=== PATIENT | female | born 1960 | race American Indian/Alaskan Native ===

== ENCOUNTER 2016-04-20 08:54 | Emergency (ER) | payer MEDICAID ==
[2016-04-20 09:12] VITALS: BP 125/71
[2016-04-20] MEDS ORDERED: NACL 0.9% 1000 ML 1,000 ML IV ONE (11:52)
[2016-04-20] MEDS ORDERED: TORADOL IV ONE (11:52)
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
[2016-04-20] MEDS ORDERED: TORADOL IM ONE (12:00)
[2016-04-20 12:29] LABS: Basophils % (Auto) 0.7 % (0.0-1.8); Eosinophils % (Auto) 1.4 % (0.0-4.3); Hematocrit 37.4 % (30.3-42.9); Hemoglobin 12.4 gm/dl (10.1-14.3); Mean Corpuscular HGB Conc 33 % (30-34); Mean Corpuscular Hemoglobin 29 pg (28-32); Mean Corpuscular Volume 87 fl (79-97); Platelet Count 173 K/mm3 (140-440); Red Blood Count 4.31 M/mm3 (3.65-5.03); Red Cell Distribution Width 15.3 % (13.2-15.2); White Blood Count 11.2 K/mm3 (4.5-11.0)
[2016-04-20 12:33] LABS: Albumin 3.5 g/dL (3.9-5); BUN/Creatinine Ratio 10.95; Bilirubin,Total 0.2 mg/dL (0.1-1.2); Calcium 9.7 mg/dL (8.4-10.2); Chloride 97.4 mmol/L (98-107); Potassium 3.4 mmol/L (3.6-5.0); Total Protein 6.9 g/dL (6.3-8.2)
[2016-04-20 12:39] LABS: INR 0.98 (0.87-1.13)
[2016-04-20 12:40] LABS: Partial Thromboplastin Time 33.6 Sec. (24.2-36.6)
[2016-04-20 13:26] LABS: Bacteria,Urine 1+ /HPF (Negative); Bilirubin,Urine NEG (Negative); Blood,Urine NEG (Negative); Ketones,Urine NEG (Negative); Leukocyte Esterase,Urine NEG (Negative); Nitrite,Urine NEG (Negative); Protein,Urine <15 mg/dL mg/dL (Negative); Urobilinogen,Urine < 2.0 mg/dL (<2.0)
--- NOTE | 2016-04-21 08:38 | XRay Report ---
LEFT KNEE 3 VIEWS: FINDINGS: There is [id number] narrowing of the knee joint space with secondary hypertrophic changes at the articular margins. There are no erosive changes. There is narrowing of the patellofemoral joint. There is mild osteopenia but no periarticular distribution. IMPRESSION: Tricompartmental osteoarthritis.
--- NOTE | 2016-04-22 07:58 | Vascular Lab Report ---
Left Lower Extremity Venous Duplex Study: Reason for Exam: Left leg pain. Comments on the Right: A limited duplex study was done of the proximal veins of the right lower extremity. All veins visualized are freely compressible without evidence of internal echogenicity. Flow is spontaneous and phasic throughout. No evidence of acute or chronic thrombus is seen in any of the vessels visualized. Comments on the Left: All veins visualized are freely compressible without evidence of internal echogenicity. Flow is spontaneous and phasic throughout. No evidence of acute or chronic thrombus is seen in any of the vessels visualized. Impression: No evidence of acute or chronic deep venous thrombosis in the left lower extremity.
== END 2016-04-20 16:08 | disposition left against medical advice (07) ==
LOC: ED 08:54
DX: M79.662 Pain in left lower leg (principal); E11.22 Type 2 diabetes mellitus with diabetic chronic kidney disease; I12.9 Hypertensive chronic kidney disease with stage 1 through stage 4 chronic kidney disease, or unspecified chronic kidney disease; N18.9 Chronic kidney disease, unspecified; F17.200 Nicotine dependence, unspecified, uncomplicated; F20.0 Paranoid schizophrenia; Z79.899 Other long term (current) drug therapy; Z88.8 Allergy status to other drugs, medicaments and biological substances; W19.XXXA Unspecified fall, initial encounter; Y93.89 Activity, other specified; Y99.8 Other external cause status; Y92.89 Other specified places as the place of occurrence of the external cause
CPT/HCPCS: 36415; 73562; 80053; 81001; 83690; 85025; 85610; 85730; 93971; 96372; 99284; J1885

== ENCOUNTER 2016-08-02 08:38 | Emergency (ER) | payer MEDICAID ==
[2016-08-02 09:04] LABS: Basophils % (Auto) 0.3 % (0.0-1.8); Hematocrit 41.1 % (30.3-42.9); Hemoglobin 13.3 gm/dl (10.1-14.3); Mean Corpuscular HGB Conc 32 % (30-34); Mean Corpuscular Hemoglobin 29 pg (28-32); Mean Corpuscular Volume 90 fl (79-97); Platelet Count 183 K/mm3 (140-440); Red Blood Count 4.59 M/mm3 (3.65-5.03); Red Cell Distribution Width 16.4 % (13.2-15.2); White Blood Count 11.6 K/mm3 (4.5-11.0)
[2016-08-02 09:20] LABS: Albumin 3.7 g/dL (3.9-5); Bilirubin,Total 0.2 mg/dL (0.1-1.2); Calcium 9.5 mg/dL (8.4-10.2); Potassium 3.6 mmol/L (3.6-5.0); Total Protein 7.3 g/dL (6.3-8.2)
[2016-08-02] MEDS ORDERED: DECADRON IV ONE (09:44)
[2016-08-02] MEDS ORDERED: BENADRYL IV ONE (09:44)
[2016-08-02] MEDS ORDERED: PEPCID IV ONE (09:44)
[2016-08-02 10:35] LABS: Bacteria,Urine 4+ /HPF (Negative); Bilirubin,Urine NEG (Negative); Blood,Urine NEG (Negative); Ketones,Urine NEG (Negative); Leukocyte Esterase,Urine NEG (Negative); Nitrite,Urine NEG (Negative); Urobilinogen,Urine < 2.0 mg/dL (<2.0)
--- NOTE | 2016-08-02 11:51 | XRay Report ---
AP CHEST: HISTORY: Tachycardia AP view of the chest demonstrates a normal mediastinal and cardiac contour with clear lungs and normal bony and soft tissue structures. IMPRESSION: Unremarkable AP chest. No significant change since 09/11/14.
--- NOTE | 2016-08-02 15:00 | Emergency Department Report ---
ED General Adult HPI - General Chief complaint: Allergic Reaction Stated complaint: SWOLLEN LIP/HIVES/CONSTIPATION/WEEKNESS Time Seen by Provider: 08/02/16 09:43 Source: patient Mode of arrival: Ambulatory Limitations: No Limitations - History of Present Illness Initial comments: Patient reports that she awoke with swollen lips and hives on her skin. Unknown allergen history per patient. Not on lisinopril for HTN -: Gradual, hour(s) Radiation: non-radiation Severity scale (0 -10): 0 Consistency: other (improving) Improves with: none Worsens with: medication (2) Associated Symptoms: chest pain (reports chest pain on Monday last seconds. Denies any subsequent chest pain.). denies: confusion, cough, diaphoresis, fever/chills, headaches, loss of appetite, malaise, nausea/vomiting, rash, seizure, shortness of breath, syncope, weakness - Related Data Home Medications Medication Instructions Recorded Confirmed Last Taken Sertraline [Zoloft] 50 mg PO QDAY 09/11/14 08/21/15 06/05/15 08:00 hydrALAZINE [Apresoline TAB] 50 mg PO BID 09/11/14 08/21/15 06/04/15 20:00 risperiDONE [RisperDAL] 2 mg PO QHS 09/11/14 08/21/15 06/04/15 20:00 Previous Rx's Medication Instructions Recorded Last Taken Type EPINEPHrine [Epipen 2-Irvin] 0.3 mg IM ONCE #1 pack 08/02/16 Unknown Rx Famotidine [Pepcid] 20 mg PO BID #10 tablet 08/02/16 Unknown Rx diphenhydrAMINE [Benadryl CAP] 50 mg PO QHS #5 capsule 08/02/16 Unknown Rx predniSONE [Deltasone] 50 mg PO QDAY #5 tab 08/02/16 Unknown Rx Allergies Allergy/AdvReac Type Severity Reaction Status Date / Time lisinopril Allergy Swelling Verified 06/05/15 12:42 ED Review of Systems ROS: Stated complaint: SWOLLEN LIP/HIVES/CONSTIPATION/WEEKNESS Other details as noted in HPI Other: GENERAL: No weight change, fatigue, weakness, fever, chills, or night sweats SKIN: hives itching, lower left lip swelling HEAD: No trauma, headache, or visual changes EYES: No blurriness, tearing, itching, acute visual loss, conjunctival discoloration, or scleral icterus EARS: No hearing loss, tinnitus, vertigo, or earache NOSE: No rhinorrhea, stuffiness, sneezing, itching, or epistaxis MOUTH: No bleeding gums, hoarseness, sore throat, or swelling CARDIAC: chest pain days ago RESPIRATORY: No shortness of breath, wheeze, cough, sputum production, hemoptysis, pneumonia, asthma, bronchitis, or emphysema GI: denies abd pain, n/v/d URINARY: No frequency, urgency, polyuria, dysuria, hematuria, or incontinence MUSCULOSKELETAL: No muscle weakness, joint stiffness, decrease in range of motion, redness, swelling, tenderness NEUROLOGIC: No loss of sensation, numbness, tingling, tremors, weakness, paralysis, seizures HEMATOLOGIC: No anemia, easy bruising, bleeding, petechiae, or purpura ENDOCRINE: No hot or cold intolerance, sweating, polyuria, polydipsia or, polyphagia no thyroid problems PSYCHIATRIC: No change in mood, no anxiety, no depression ED Past Medical Hx - Past Medical History Previous Medical History?: Yes Hx Hypertension: Yes Hx Diabetes: Yes Hx Renal Disease: Yes Hx Psychiatric Treatment: Yes (paranoid schizophrenia) Additional medical history: "kidney problems", Left leg pain - Surgical History Past Surgical History?: Yes Additional Surgical History: FEET SURGERY. - Social History Smoking Status: Current Every Day Smoker Substance Use Type: Prescribed - Medications Home Medications: Home Medications Medication Instructions Recorded Confirmed Last Taken Type Sertraline [Zoloft] 50 mg PO QDAY 09/11/14 08/21/15 06/05/15 08:00 History hydrALAZINE [Apresoline TAB] 50 mg PO BID 09/11/14 08/21/15 06/04/15 20:00 History risperiDONE [RisperDAL] 2 mg PO QHS 09/11/14 08/21/15 06/04/15 20:00 History EPINEPHrine [Epipen 2-Irvin] 0.3 mg IM ONCE #1 pack 08/02/16 Unknown Rx Famotidine [Pepcid] 20 mg PO BID #10 tablet 08/02/16 Unknown Rx diphenhydrAMINE [Benadryl CAP] 50 mg PO QHS #5 capsule 08/02/16 Unknown Rx predniSONE [Deltasone] 50 mg PO QDAY #5 tab 08/02/16 Unknown Rx ED Physical Exam - General Limitations: No Limitations - Other Other exam information: GENERAL: Patient in no acute distress HEAD: Normocephalic, atraumatic EYES: PERRLA, EOM intact, no scleral icterus, no conjunctival hemorrhage, visual mitchell and acuity wnl, NOSE: No tenderness, discharge, sinus tenderness MOUTH: No erythema, bleeding, exudate HEART: Regular rate and rhythm, no murmur, S1-S2 are auscultated, pulses are symmetric LUNGS: No wheezing, rales, rhonchi, bilateral breath sounds ABDOMEN: Normal bowel sounds, no tenderness, no rebound, no guarding, no masses , no CVA tenderness MUSCULOSKELETAL: Normal joint range of motion, no redness, no swelling, no tenderness NEUROLOGIC: GCS 15, Alert and Oriented x3, Cranial nerves intact, normal sensation, normal strength, no cerebellar deficit PSYCHIATRIC: No homicidal or suicidal ideation, no anxiety, no depression, no hallucinations SKIN: Skin is warm and dry, no wounds, no rashes ED Course Vital Signs 08/02/16 08/02/16 08/02/16 08:44 10:00 10:57 Temperature 97.8 F 98.1 F Pulse Rate 104 H 82 60 Respiratory 22 18 16 Rate Blood Pressure 152/56 Blood Pressure 127/61 112/57 [Left] O2 Sat by Pulse 100 99 97 Oximetry 08/02/16 08/02/16 08/02/16 11:48 11:50 12:00 Temperature Pulse Rate 61 59 L Respiratory 23 20 27 H Rate Blood Pressure 118/47 Blood Pressure [Left] O2 Sat by Pulse 97 97 98 Oximetry 08/02/16 08/02/16 08/02/16 12:10 12:20 12:30 Temperature Pulse Rate 60 54 L 61 Respiratory 20 21 25 H Rate Blood Pressure 118/47 107/63 115/59 Blood Pressure [Left] O2 Sat by Pulse 98 97 97 Oximetry 08/02/16 08/02/16 08/02/16 12:40 12:50 13:00 Temperature Pulse Rate 63 69 70 Respiratory 25 H 26 H 29 H Rate Blood Pressure 115/59 123/65 123/65 Blood Pressure [Left] O2 Sat by Pulse 98 97 97 Oximetry 08/02/16 08/02/16 08/02/16 13:10 13:20 13:30 Temperature Pulse Rate 67 83 87 Respiratory 26 H 18 9 L Rate Blood Pressure 118/80 118/80 118/80 Blood Pressure [Left] O2 Sat by Pulse 98 96 97 Oximetry 08/02/16 08/02/16 08/02/16 13:40 13:50 14:00 Temperature Pulse Rate 75 61 58 L Respiratory 14 11 L 31 H Rate Blood Pressure 118/80 139/85 139/85 Blood Pressure [Left] O2 Sat by Pulse 98 96 99 Oximetry 08/02/16 08/02/16 08/02/16 14:10 14:20 14:30 Temperature Pulse Rate 62 59 L 57 L Respiratory 30 H 30 H 19 Rate Blood Pressure 122/60 125/63 133/57 Blood Pressure [Left] O2 Sat by Pulse 97 98 96 Oximetry 08/02/16 08/02/16 08/02/16 14:40 14:50 15:00 Temperature Pulse Rate 63 63 62 Respiratory 25 H 25 H 27 H Rate Blood Pressure 133/57 136/72 129/77 Blood Pressure [Left] O2 Sat by Pulse 100 98 97 Oximetry 08/02/16 08/02/16 15:10 15:20 Temperature Pulse Rate 58 L 54 L Respiratory 26 H 28 H Rate Blood Pressure 129/77 132/72 Blood Pressure [Left] O2 Sat by Pulse 97 97 Oximetry ED Medical Decision Making - Lab Data Result diagrams: 08/02/16 08:53 08/02/16 08:53 - EKG Data Interpretation: no acute changes - Radiology Data Radiology results: report reviewed - Medical Decision Making Patient comfortable. Updated with results. Plan discharge with outpatient follow-up. Patient agrees with plan and will return if symptoms worsen. Critical care attestation.: If time is entered above; I have spent that time in minutes in the direct care of this critically ill patient, excluding procedure time. ED Disposition Clinical Impression: Allergic reaction Qualifiers: Encounter type: initial encounter Qualified Code(s): T78.40XA - Allergy, unspecified, initial encounter Disposition: TO HOME OR SELFCARE Is pt being admited?: No Condition: Stable Instructions: Chest Pain (ED), Allergies (ED) Prescriptions: diphenhydrAMINE [Benadryl CAP] 50 mg PO QHS #5 capsule EPINEPHrine [Epipen 2-Irvin] 0.3 mg IM ONCE #1 pack Famotidine [Pepcid] 20 mg PO BID #10 tablet predniSONE [Deltasone] 50 mg PO QDAY #5 tab Referrals: PRIMARY CARE, [Primary Care Provider] - 3-5 Days Time of Disposition: 15:52
[2016-08-02 15:30] VITALS: BP 132/72
== END 2016-08-02 15:58 | disposition home or self-care (01) ==
LOC: ED 08:38
DX: T78.40XA Allergy, unspecified, initial encounter (principal); I10 Essential (primary) hypertension; E11.9 Type 2 diabetes mellitus without complications; F20.0 Paranoid schizophrenia; F17.200 Nicotine dependence, unspecified, uncomplicated; Z88.6 Allergy status to analgesic agent
CPT/HCPCS: 36415; 71010; 80053; 81001; 83690; 84484; 85025; 93005; 93010; 96374; 96375; 99284; J1100; J1200

== ENCOUNTER 2016-08-11 08:42 | Emergency (ER) | payer MEDICAID ==
[2016-08-11] MEDS ORDERED: ULTRAM PO ONE (11:46)
--- NOTE | 2016-08-11 12:09 | Emergency Department Report ---
ED Extremity Problem HPI - General Chief complaint: Extremity Problem,Nontraumatic Stated complaint: R/L LEG PAIN Time Seen by Provider: 08/11/16 11:09 Source: patient Mode of arrival: Ambulatory Limitations: No Limitations - History of Present Illness Initial comments: "my legs have been hurting for some years, aching more latley for past month" pt denies fall injury or trauma MD Complaint: extremity pain Onset/Timin -: Sudden, year(s) Location: bilateral lower extremity History of Same: Yes -: Yes myalgia, Yes arthralgia Radiation: none Severity scale (0 -10): 8 Quality: aching Consistency: intermittent Improves with: rest Worsens with: weight bearing, walking Associated Symptoms: denies other symptoms - Related Data Home Medications Medication Instructions Recorded Confirmed Last Taken Sertraline [Zoloft] 50 mg PO QDAY 09/11/14 08/21/15 06/05/15 08:00 hydrALAZINE [Apresoline TAB] 50 mg PO BID 09/11/14 08/21/15 06/04/15 20:00 risperiDONE [RisperDAL] 2 mg PO QHS 09/11/14 08/21/15 06/04/15 20:00 Previous Rx's Medication Instructions Recorded Last Taken Type EPINEPHrine [Epipen 2-Irvin] 0.3 mg IM ONCE #1 pack 08/02/16 Unknown Rx Famotidine [Pepcid] 20 mg PO BID #10 tablet 08/02/16 Unknown Rx diphenhydrAMINE [Benadryl CAP] 50 mg PO QHS #5 capsule 08/02/16 Unknown Rx predniSONE [Deltasone] 50 mg PO QDAY #5 tab 08/02/16 Unknown Rx Capsaicin [Capzasin-Hp] 1 applicatio TP TID PRN #1 tube 08/11/16 Unknown Rx Naproxen [Naprosyn TAB] 500 mg PO BID PRN #60 tablet 08/11/16 Unknown Rx Allergies Allergy/AdvReac Type Severity Reaction Status Date / Time lisinopril Allergy Swelling Verified 06/05/15 12:42 ED Review of Systems ROS: Stated complaint: R/L LEG PAIN Other details as noted in HPI Constitutional: denies: chills, fever Eyes: denies: eye pain, eye discharge, vision change ENT: denies: ear pain, throat pain Respiratory: denies: cough, shortness of breath, wheezing Cardiovascular: denies: chest pain, palpitations Endocrine: no symptoms reported Gastrointestinal: denies: abdominal pain, nausea, diarrhea Genitourinary: denies: urgency, dysuria, discharge Musculoskeletal: arthralgia, myalgia Skin: denies: rash, lesions Neurological: denies: headache, weakness, paresthesias Psychiatric: denies: anxiety, depression Hematological/Lymphatic: denies: easy bleeding, easy bruising ED Past Medical Hx - Past Medical History Previous Medical History?: Yes Hx Hypertension: Yes Hx Diabetes: Yes Hx Renal Disease: Yes Hx Psychiatric Treatment: Yes (paranoid schizophrenia) Additional medical history: "kidney problems", Left leg pain - Surgical History Past Surgical History?: Yes Additional Surgical History: FEET SURGERY. - Social History Smoking Status: Current Every Day Smoker Substance Use Type: None - Medications Home Medications: Home Medications Medication Instructions Recorded Confirmed Last Taken Type Sertraline [Zoloft] 50 mg PO QDAY 09/11/14 08/21/15 06/05/15 08:00 History hydrALAZINE [Apresoline TAB] 50 mg PO BID 09/11/14 08/21/15 06/04/15 20:00 History risperiDONE [RisperDAL] 2 mg PO QHS 09/11/14 08/21/15 06/04/15 20:00 History EPINEPHrine [Epipen 2-Irvin] 0.3 mg IM ONCE #1 pack 08/02/16 Unknown Rx Famotidine [Pepcid] 20 mg PO BID #10 tablet 08/02/16 Unknown Rx diphenhydrAMINE [Benadryl CAP] 50 mg PO QHS #5 capsule 08/02/16 Unknown Rx predniSONE [Deltasone] 50 mg PO QDAY #5 tab 08/02/16 Unknown Rx Capsaicin [Capzasin-Hp] 1 applicatio TP TID PRN #1 tube 08/11/16 Unknown Rx Naproxen [Naprosyn TAB] 500 mg PO BID PRN #60 tablet 08/11/16 Unknown Rx ED Physical Exam - General Limitations: No Limitations General appearance: alert, in no apparent distress - Head Head exam: Present: atraumatic, normocephalic - Eye Eye exam: Present: normal appearance - ENT ENT exam: Present: mucous membranes moist - Neck Neck exam: Present: normal inspection - Respiratory Respiratory exam: Present: normal lung sounds bilaterally. Absent: respiratory distress - Cardiovascular Cardiovascular Exam: Present: regular rate, normal rhythm. Absent: systolic murmur, diastolic murmur, rubs, gallop - Rectal Rectal exam: Present: deferred - Extremities Exam Extremities exam: Present: normal inspection, full ROM, normal capillary refill. Absent: tenderness, pedal edema, joint swelling, calf tenderness - Expanded Lower Extremity Exam Right Hip exam: Present: full ROM, external rotation, internal rotation, pelvic stability. Absent: tenderness, swelling, abrasion, laceration, ecchymosis, deformity, crepidus, dislocation, erythema, shortening Upper Leg exam: Present: normal inspection, full ROM. Absent: tenderness, swelling, abrasion, laceration, ecchymosis, deformity, crepidus, dislocation, erythema Knee exam: Present: normal inspection Lower Leg exam: Present: normal inspection Ankle exam: Present: normal inspection Foot/Toe exam: Present: normal inspection Neuro vascular tendon exam: Present: no vascular compromise. Absent: pulse deficit, abnormal cap refill, motor deficit, sensory deficit, tendon deficit, extremity cold to touch, pallor, abnormal 2-point discrimination, decreased fine /light touch, foot drop, peroneal nerve deficit, significant pain with passive ROM of distal joint Gait: Positive: observed and limited by pain - Back Exam Back exam: Present: normal inspection, full ROM. Absent: tenderness, CVA tenderness (R), CVA tenderness (L), muscle spasm, paraspinal tenderness, vertebral tenderness, rash noted - Neurological Exam Neurological exam: Present: alert, oriented X3, CN II-XII intact, reflexes normal. Absent: motor sensory deficit - Psychiatric Psychiatric exam: Present: normal affect, normal mood - Skin Skin exam: Present: warm, dry, intact, normal color. Absent: rash ED Course Vital Signs 08/11/16 08/11/16 08:50 12:20 Temperature 98.4 F 98.2 F Pulse Rate 111 H 92 H Respiratory 18 Rate Blood Pressure 118/94 Blood Pressure 141/82 [Left] O2 Sat by Pulse 100 100 Oximetry ED Medical Decision Making - Medical Decision Making pt is a 55 y/o aaf with hx chronic bilat LE pain for past 3 yrs pt denies fall injury or trauma pt remains ambulatory to self stated baseline complains of bilat hip and upper leg pain and aching pain described 4/10 aching exacerbated by prolong walking and weight bearing, exam: no point tenderness no erythema no edema no deformity rom intact nonrestricted , pt affect is anxious no si no hi, normal mentation a/o x 3 pt is ambulatory gait is steady , this is likely musculoskeletal pain will treat with prn nsaids , pt will follow up with primary care doctor as directed, pt verbalized agreement and understanding with discharge plan. Critical care attestation.: If time is entered above; I have spent that time in minutes in the direct care of this critically ill patient, excluding procedure time. ED Disposition Clinical Impression: Musculoskeletal pain of lower extremity Disposition: - TO HOME OR SELFCARE Is pt being admited?: No Does the pt Need Aspirin: No Condition: Good Instructions: Musculoskeletal Pain (ED) Prescriptions: Capsaicin [Capzasin-Hp] 1 applicatio TP TID PRN #1 tube PRN Reason: Pain Naproxen [Naprosyn TAB] 500 mg PO BID PRN #60 tablet PRN Reason: Pain Referrals: PRIMARY CARE, [Primary Care Provider] - 3-5 Days Forms: Work/School Release Form(ED) Time of Disposition: 12:25
[2016-08-11 12:20] VITALS: BP 141/82
== END 2016-08-11 12:30 | disposition home or self-care (01) ==
LOC: ED 08:42
DX: M79.604 Pain in right leg (principal); I10 Essential (primary) hypertension; E11.9 Type 2 diabetes mellitus without complications; F20.0 Paranoid schizophrenia; Z88.8 Allergy status to other drugs, medicaments and biological substances
CPT/HCPCS: 99282

== ENCOUNTER 2016-08-25 09:05 | Emergency (ER) | payer MEDICAID ==
[2016-08-25 09:14] VITALS: BP 110/62
--- NOTE | 2016-08-25 11:25 | Emergency Department Report ---
ED General Adult HPI - General Chief complaint: Allergic Reaction Stated complaint: UPPER LIP SWOLLEN/LEG WEAKNESS Time Seen by Provider: 08/25/16 11:01 Source: patient Mode of arrival: Ambulatory Limitations: No Limitations - History of Present Illness Initial comments: Patient comes into the ER today with complaints of upper lip swelling as well as itching and redness noted to the right posterior wrist and left lower eye. Patient denies any change in environment, known insect bites, new medications. Patient states that last night around 7 PM she knows her left upper lip starting to swell and it has stayed constant ever since. Patient has not taken anything for her swelling in symptoms. Patient does note that she is a diabetic that she does not check her sugars and she is not currently taking any medications for her diabetes. Patient denies any throat closing, shortness of breath, wheezing. -: days(s) (1) - Related Data Home Medications Medication Instructions Recorded Confirmed Last Taken Sertraline [Zoloft] 50 mg PO QDAY 09/11/14 08/21/15 06/05/15 08:00 hydrALAZINE [Apresoline TAB] 50 mg PO BID 09/11/14 08/21/15 06/04/15 20:00 risperiDONE [RisperDAL] 2 mg PO QHS 09/11/14 08/21/15 06/04/15 20:00 Previous Rx's Medication Instructions Recorded Last Taken Type EPINEPHrine [Epipen 2-Irvin] 0.3 mg IM ONCE #1 pack 08/02/16 Unknown Rx Famotidine [Pepcid] 20 mg PO BID #10 tablet 08/02/16 Unknown Rx diphenhydrAMINE [Benadryl CAP] 50 mg PO QHS #5 capsule 08/02/16 Unknown Rx predniSONE [Deltasone] 50 mg PO QDAY #5 tab 08/02/16 Unknown Rx Capsaicin [Capzasin-Hp] 1 applicatio TP TID PRN #1 tube 08/11/16 Unknown Rx Naproxen [Naprosyn TAB] 500 mg PO BID PRN #60 tablet 08/11/16 Unknown Rx diphenhydrAMINE [Benadryl CAP] 25 mg PO Q8HR PRN #15 capsule 08/25/16 Unknown Rx predniSONE [Deltasone] 60 mg PO QDAY 5 Days 08/25/16 Unknown Rx Allergies Allergy/AdvReac Type Severity Reaction Status Date / Time lisinopril Allergy Swelling Verified 08/25/16 09:27 ED Review of Systems ROS: Stated complaint: UPPER LIP SWOLLEN/LEG WEAKNESS Other details as noted in HPI Constitutional: denies: chills, fever Eyes: denies: eye pain, eye discharge, vision change ENT: denies: ear pain, throat pain, dental pain, congestion Respiratory: denies: cough, shortness of breath, wheezing Cardiovascular: denies: chest pain, palpitations Endocrine: no symptoms reported Gastrointestinal: denies: abdominal pain, nausea, diarrhea Genitourinary: denies: urgency, dysuria, discharge Musculoskeletal: denies: back pain, joint swelling, arthralgia Skin: denies: rash Neurological: denies: headache, weakness, paresthesias Psychiatric: denies: anxiety, depression Hematological/Lymphatic: denies: easy bleeding, easy bruising ED Past Medical Hx - Past Medical History Hx Hypertension: Yes Hx Diabetes: Yes Hx Renal Disease: Yes Hx Psychiatric Treatment: Yes (paranoid schizophrenia) Additional medical history: Left leg pain - Surgical History Past Surgical History?: Yes Additional Surgical History: FEET SURGERY. - Social History Smoking Status: Current Every Day Smoker Substance Use Type: None - Medications Home Medications: Home Medications Medication Instructions Recorded Confirmed Last Taken Type Sertraline [Zoloft] 50 mg PO QDAY 09/11/14 08/21/15 06/05/15 08:00 History hydrALAZINE [Apresoline TAB] 50 mg PO BID 09/11/14 08/21/15 06/04/15 20:00 History risperiDONE [RisperDAL] 2 mg PO QHS 09/11/14 08/21/15 06/04/15 20:00 History EPINEPHrine [Epipen 2-Irvin] 0.3 mg IM ONCE #1 pack 08/02/16 Unknown Rx Famotidine [Pepcid] 20 mg PO BID #10 tablet 08/02/16 Unknown Rx diphenhydrAMINE [Benadryl CAP] 50 mg PO QHS #5 capsule 08/02/16 Unknown Rx predniSONE [Deltasone] 50 mg PO QDAY #5 tab 08/02/16 Unknown Rx Capsaicin [Capzasin-Hp] 1 applicatio TP TID PRN #1 tube 08/11/16 Unknown Rx Naproxen [Naprosyn TAB] 500 mg PO BID PRN #60 tablet 08/11/16 Unknown Rx diphenhydrAMINE [Benadryl CAP] 25 mg PO Q8HR PRN #15 capsule 08/25/16 Unknown Rx predniSONE [Deltasone] 60 mg PO QDAY 5 Days 08/25/16 Unknown Rx ED Physical Exam - General Limitations: No Limitations General appearance: alert, in no apparent distress, obese - Head Head exam: Present: atraumatic, normocephalic, other (left facial urticarial lesions noted inferior to left eye for zygomatic arch region.) - Eye Eye exam: Present: normal appearance, PERRL, EOMI - ENT ENT exam: Present: normal orophraynx, mucous membranes moist, other (left greater than right upper lip swelling without redness or induration.) - Neck Neck exam: Present: normal inspection, full ROM. Absent: tenderness, lymphadenopathy - Respiratory Respiratory exam: Present: normal lung sounds bilaterally. Absent: respiratory distress, wheezes, decreased breath sounds - Cardiovascular Cardiovascular Exam: Present: regular rate (repeat heart rate at 90 bpm), normal rhythm. Absent: systolic murmur, diastolic murmur, rubs, gallop - GI/Abdominal GI/Abdominal exam: Present: soft, normal bowel sounds - Extremities Exam Extremities exam: Present: full ROM, normal capillary refill, other (urticarial , red, non-indurated, nontender lesion noted to right posterior wrist). Absent : tenderness, pedal edema, calf tenderness - Back Exam Back exam: Present: normal inspection - Neurological Exam Neurological exam: Present: alert, oriented X3, CN II-XII intact, reflexes normal. Absent: motor sensory deficit - Psychiatric Psychiatric exam: Present: normal affect, normal mood - Skin Skin exam: Present: warm, dry, intact, normal color, urticaria. Absent: rash ED Course Vital Signs 08/25/16 08/25/16 09:13 09:23 Temperature 98.2 F 98.2 F Pulse Rate 109 H 109 H Respiratory 16 16 Rate Blood Pressure 110/62 Blood Pressure 110/62 [Right] O2 Sat by Pulse 99 99 Oximetry ED Medical Decision Making - Lab Data Accu-Chek blood glucose = 108 - Medical Decision Making Patient is nontoxic and hemodynamically stable. Patient's blood sugar within normal limits here in the ER. Patient's symptoms have been going on approximately 16 hours and apparently do not seem to be worsening. Patient does not appear to be in any anaphylactic state. I will start patient on a short course of steroids and antihistamines with referral to human resources operations specialist for additional testing. Patient is in agreement with treatment plan and patient is stable for discharge. Critical care attestation.: If time is entered above; I have spent that time in minutes in the direct care of this critically ill patient, excluding procedure time. ED Disposition Clinical Impression: Allergic reaction, Diabetes mellitus, Insect bite Disposition: DC- TO HOME OR SELFCARE Is pt being admited?: No Does the pt Need Aspirin: No Condition: Good Instructions: Diabetes Mellitus Type 2 in Adults (ED), How to Check Your Blood Sugar (ED), Urticaria (ED), Food Allergy (ED) Prescriptions: diphenhydrAMINE [Benadryl CAP] 25 mg PO Q8HR PRN #15 capsule PRN Reason: Allergic Reaction predniSONE [Deltasone] 60 mg PO QDAY 5 Days Referrals: PRIMARY CARE, [Primary Care Provider] - 3-5 Days [facility] [Provider Group] - 3-5 Days Time of Disposition: 11:41
== END 2016-08-25 11:47 | disposition home or self-care (01) ==
LOC: ED 09:05
DX: T78.49XA Other allergy, initial encounter (principal); E11.9 Type 2 diabetes mellitus without complications; X58.XXXA Exposure to other specified factors, initial encounter; F20.0 Paranoid schizophrenia; F17.200 Nicotine dependence, unspecified, uncomplicated; Z88.8 Allergy status to other drugs, medicaments and biological substances
CPT/HCPCS: 82962; 99282

== ENCOUNTER 2016-10-05 08:21 | Emergency (ER) | payer MEDICAID ==
[2016-10-05 08:59] LABS: Basophils % (Auto) 0.8 % (0.0-1.8); Eosinophils % (Auto) 1.9 % (0.0-4.3); Hemoglobin 12.2 gm/dl (10.1-14.3); Mean Corpuscular HGB Conc 33 % (30-34); Mean Corpuscular Hemoglobin 29 pg (28-32); Mean Corpuscular Volume 88 fl (79-97); Platelet Count 222 K/mm3 (140-440); Red Blood Count 4.19 M/mm3 (3.65-5.03); Red Cell Distribution Width 15.4 % (13.2-15.2); White Blood Count 12.1 K/mm3 (4.5-11.0)
[2016-10-05 09:13] LABS: Anion Gap 22 mmol/L; BUN/Creatinine Ratio 15.76; Blood Urea Nitrogen 41 mg/dL (7-17); Calcium 9.3 mg/dL (8.4-10.2); Carbon Dioxide 23 mmol/L (22-30); Chloride 94.3 mmol/L (98-107); Glucose 206 mg/dL (65-100); Potassium 3.1 mmol/L (3.6-5.0); Sodium 136 mmol/L (137-145)
--- NOTE | 2016-10-05 09:52 | Cat Scan Report ---
CT HEAD WITHOUT CONTRAST: HISTORY: Weakness. Serial contiguous axial images were obtained through the cranium. Intravenous contrast material was not administered. The ventricles are normal in size and appearance. There is no mass effect or midline shift. No areas of abnormally increased or decreased attenuation are seen. No mass lesion is seen. The mastoid air cells and visualized portions of the sinuses are normal. IMPRESSION: Cranial CT scan within normal limits.
--- NOTE | 2016-10-05 16:35 | Emergency Department Report ---
ED Chest Pain HPI - General Chief Complaint: Chest Pain Stated Complaint: CHEST PAIN/WEAKNESS Time Seen by Provider: 10/05/16 16:07 Source: patient Mode of arrival: Ambulatory Limitations: No Limitations - History of Present Illness MD Complaint: chest pain -: Gradual, month(s) (6) Onset: during rest, during exertion Pain Location: right chest Severity: mild Severity scale (0 -10): 2 Quality: aching, sharp Consistency: constant Improves With: nothing Worsens With: nothing re: denies: nausea, vomting, diaphoresis, dyspnea, sense of impending doom, other Other Symptoms: denies: cough, fever, syncope, rash, acid taste in mouth Treatments Prior to Arrival: none - Related Data Home Medications Medication Instructions Recorded Confirmed Last Taken Sertraline [Zoloft] 50 mg PO QDAY 09/11/14 08/21/15 06/05/15 08:00 hydrALAZINE [Apresoline TAB] 50 mg PO BID 09/11/14 08/21/15 06/04/15 20:00 risperiDONE [RisperDAL] 2 mg PO QHS 09/11/14 08/21/15 06/04/15 20:00 Previous Rx's Medication Instructions Recorded Last Taken Type EPINEPHrine [Epipen 2-Irvin] 0.3 mg IM ONCE #1 pack 08/02/16 Unknown Rx Famotidine [Pepcid] 20 mg PO BID #10 tablet 08/02/16 Unknown Rx diphenhydrAMINE [Benadryl CAP] 50 mg PO QHS #5 capsule 08/02/16 Unknown Rx predniSONE [Deltasone] 50 mg PO QDAY #5 tab 08/02/16 Unknown Rx Capsaicin [Capzasin-Hp] 1 applicatio TP TID PRN #1 tube 08/11/16 Unknown Rx Naproxen [Naprosyn TAB] 500 mg PO BID PRN #60 tablet 08/11/16 Unknown Rx diphenhydrAMINE [Benadryl CAP] 25 mg PO Q8HR PRN #15 capsule 08/25/16 Unknown Rx predniSONE [Deltasone] 60 mg PO QDAY 5 Days 08/25/16 Unknown Rx Allergies Allergy/AdvReac Type Severity Reaction Status Date / Time lisinopril Allergy Swelling Verified 08/25/16 09:27 Heart Score - HEART Score History: Slightly suspicious EKG: Non-specific Age: 45-65 Risk factors: 1-2 risk factors Troponin: < normal limit HEART Score: 3 ED Review of Systems ROS: Stated complaint: CHEST PAIN/WEAKNESS Other details as noted in HPI Comment: All other systems reviewed and negative ED Past Medical Hx - Past Medical History Previous Medical History?: Yes Hx Hypertension: Yes Hx Diabetes: Yes Hx Renal Disease: Yes Hx Psychiatric Treatment: Yes (paranoid schizophrenia) Additional medical history: Left leg pain - Surgical History Past Surgical History?: Yes Additional Surgical History: FEET SURGERY. - Social History Smoking Status: Light Tobacco Smoker Substance Use Type: None - Medications Home Medications: Home Medications Medication Instructions Recorded Confirmed Last Taken Type Sertraline [Zoloft] 50 mg PO QDAY 09/11/14 08/21/15 06/05/15 08:00 History hydrALAZINE [Apresoline TAB] 50 mg PO BID 09/11/14 08/21/15 06/04/15 20:00 History risperiDONE [RisperDAL] 2 mg PO QHS 09/11/14 08/21/15 06/04/15 20:00 History EPINEPHrine [Epipen 2-Irvin] 0.3 mg IM ONCE #1 pack 08/02/16 Unknown Rx Famotidine [Pepcid] 20 mg PO BID #10 tablet 08/02/16 Unknown Rx diphenhydrAMINE [Benadryl CAP] 50 mg PO QHS #5 capsule 08/02/16 Unknown Rx predniSONE [Deltasone] 50 mg PO QDAY #5 tab 08/02/16 Unknown Rx Capsaicin [Capzasin-Hp] 1 applicatio TP TID PRN #1 tube 08/11/16 Unknown Rx Naproxen [Naprosyn TAB] 500 mg PO BID PRN #60 tablet 08/11/16 Unknown Rx diphenhydrAMINE [Benadryl CAP] 25 mg PO Q8HR PRN #15 capsule 08/25/16 Unknown Rx predniSONE [Deltasone] 60 mg PO QDAY 5 Days 08/25/16 Unknown Rx ED Physical Exam - General Limitations: No Limitations General appearance: alert, in no apparent distress - Head Head exam: Present: atraumatic, normocephalic - Eye Eye exam: Present: normal appearance - ENT ENT exam: Present: mucous membranes moist - Neck Neck exam: Present: normal inspection - Respiratory Respiratory exam: Present: normal lung sounds bilaterally. Absent: respiratory distress, wheezes, rales, rhonchi - Cardiovascular Cardiovascular Exam: Present: regular rate, normal rhythm. Absent: systolic murmur, diastolic murmur, rubs, gallop - GI/Abdominal GI/Abdominal exam: Present: soft, normal bowel sounds - Extremities Exam Extremities exam: Present: normal inspection - Back Exam Back exam: Present: normal inspection - Neurological Exam Neurological exam: Present: alert, oriented X3 - Psychiatric Psychiatric exam: Present: normal affect, normal mood - Skin Skin exam: Present: warm, dry, intact, normal color. Absent: rash ED Course Vital Signs 10/05/16 08:35 Temperature 98.5 F Pulse Rate 99 H Respiratory 18 Rate Blood Pressure 132/66 O2 Sat by Pulse 100 Oximetry NEWTON score - Newotn Score Age > 65: (0) No Aspirin use within the Past 7 Days: (0) No 3 or more CAD Risk Factors: (0) No 2 or more Angina events in past 24 hrs: (1) Yes Known CAD with more than 50% Stenosis: (0) No Elevated Cardiac Markers: (0) No ST Deviation Greater than 0.5mm: (0) No NEWTON Score: 1 ED Medical Decision Making - Lab Data Result diagrams: 10/05/16 08:41 10/05/16 08:41 Critical care attestation.: If time is entered above; I have spent that time in minutes in the direct care of this critically ill patient, excluding procedure time. ED Disposition Clinical Impression: Chest pain, Headache Disposition: DC-01 TO HOME OR SELFCARE Is pt being admited?: No Does the pt Need Aspirin: No Condition: Good Instructions: Chest Pain (ED) Referrals: ALONDRA MARTINES [Other] - 3-5 Days
[2016-10-05 16:49] VITALS: BP 129/68
== END 2016-10-05 16:50 | disposition home or self-care (01) ==
LOC: ED 08:21
DX: R07.9 Chest pain, unspecified (principal); R51 Headache; E11.9 Type 2 diabetes mellitus without complications; F20.0 Paranoid schizophrenia; Z88.8 Allergy status to other drugs, medicaments and biological substances; F17.200 Nicotine dependence, unspecified, uncomplicated
CPT/HCPCS: 36415; 70450; 80048; 84484; 85025; 93005; 93010

== ENCOUNTER 2017-09-17 10:22 | Emergency (ER) | payer MEDICAID ==
[2017-09-17 10:38] VITALS: BP 120/54
[2017-09-17] MEDS ORDERED: MOTRIN PO ONE (10:47)
--- NOTE | 2017-09-17 11:10 | Emergency Department Report ---
ED Fall HPI - General Chief Complaint: Fall Stated Complaint: FELL ON RT THIGH/LOWER LFT ARM Time Seen by Provider: 09/17/17 10:44 Source: patient Mode of arrival: Ambulatory - History of Present Illness Initial Comments: This is a 56-year-old female nontoxic, well nourished in appearance, no acute signs of distress presents to the ED with c/o of headache, left forearm pain, neck pain, and right thigh pain status post fall that occurred 3 days ago. Patient stated that she was taking a shower in [employer] and fell. Patient stated she is uncertain if she lost any consciousness. Patient is present with aid and stated is not sure about what happened. Patient describes headache as diffuse with level of 3 out of 10. Patient denies thunderclap headache. Patient denies any radiation of pain. Patient denies any visual changes. Patient denies worse headache. Patient denies any numbness, tingling, fever, chills, nausea, vomiting, chest pain, shortness of breath, stiff neck. Patient denies any radiation of pain. Patient stated allergies to lisionopril. Patient and aid denies taking aspirin of any blood thinners. MD Complaint: fall -: days(s) (3) Fall From: standing Fall Witnessed: no Place Fall Occurred: correction/SNF Loss of Consciousness: unsure Prolonged Down Time?: unclear Symptoms Prior to Fall: none Location: head, neck Location - Extremities: Left: Forearm, Right: Leg Severity: mild Severity scale (0 -10): 8 Quality: aching Context: tripped/slipped Associated Symptoms: headache, neck pain. denies: numbness, weakness, chest paint, shortness of breath, abdominal pain, hematuria, unable to walk, lightheaded, vertigo, confusion - Related Data Home Medications Medication Instructions Recorded Confirmed Last Taken Sertraline [Zoloft] 50 mg PO QDAY 09/11/14 08/21/15 06/05/15 08:00 hydrALAZINE [Apresoline TAB] 50 mg PO BID 09/11/14 08/21/15 06/04/15 20:00 risperiDONE [RisperDAL] 2 mg PO QHS 09/11/14 08/21/15 06/04/15 20:00 Previous Rx's Medication Instructions Recorded Last Taken Type EPINEPHrine [Epipen 2-Irvin] 0.3 mg IM ONCE #1 pack 08/02/16 Unknown Rx Famotidine [Pepcid] 20 mg PO BID #10 tablet 08/02/16 Unknown Rx diphenhydrAMINE [Benadryl CAP] 50 mg PO QHS #5 capsule 08/02/16 Unknown Rx predniSONE [Deltasone] 50 mg PO QDAY #5 tab 08/02/16 Unknown Rx Capsaicin [Capzasin-Hp] 1 applicatio TP TID PRN #1 tube 08/11/16 Unknown Rx Naproxen [Naprosyn TAB] 500 mg PO BID PRN #60 tablet 08/11/16 Unknown Rx diphenhydrAMINE [Benadryl CAP] 25 mg PO Q8HR PRN #15 capsule 08/25/16 Unknown Rx predniSONE [Deltasone] 60 mg PO QDAY 5 Days tab 08/25/16 Unknown Rx Ibuprofen [Motrin] 600 mg PO Q8H PRN #30 tablet 09/17/17 Unknown Rx Allergies Allergy/AdvReac Type Severity Reaction Status Date / Time lisinopril Allergy Swelling Verified 08/25/16 09:27 ED Review of Systems ROS: Stated complaint: FELL ON RT THIGH/LOWER LFT ARM Other details as noted in HPI Constitutional: denies: chills, fever Eyes: denies: eye pain, eye discharge, vision change ENT: denies: ear pain, throat pain Respiratory: denies: cough, shortness of breath, wheezing Cardiovascular: denies: chest pain, palpitations Endocrine: no symptoms reported Gastrointestinal: denies: abdominal pain, nausea, diarrhea Genitourinary: denies: urgency, dysuria, discharge Musculoskeletal: denies: back pain, joint swelling, arthralgia Skin: denies: rash, lesions Neurological: headache. denies: weakness, paresthesias Psychiatric: denies: anxiety, depression Hematological/Lymphatic: denies: easy bleeding, easy bruising ED Past Medical Hx - Past Medical History Previous Medical History?: Yes Hx Hypertension: Yes Hx Diabetes: Yes Hx Renal Disease: Yes Hx Psychiatric Treatment: Yes (paranoid schizophrenia) Additional medical history: Left leg pain - Surgical History Past Surgical History?: Yes Additional Surgical History: FEET SURGERY. - Social History Smoking Status: Current Every Day Smoker Substance Use Type: None - Medications Home Medications: Home Medications Medication Instructions Recorded Confirmed Last Taken Type Sertraline [Zoloft] 50 mg PO QDAY 09/11/14 08/21/15 06/05/15 08:00 History hydrALAZINE [Apresoline TAB] 50 mg PO BID 09/11/14 08/21/15 06/04/15 20:00 History risperiDONE [RisperDAL] 2 mg PO QHS 09/11/14 08/21/15 06/04/15 20:00 History EPINEPHrine [Epipen 2-Irvin] 0.3 mg IM ONCE #1 pack 08/02/16 Unknown Rx Famotidine [Pepcid] 20 mg PO BID #10 tablet 08/02/16 Unknown Rx diphenhydrAMINE [Benadryl CAP] 50 mg PO QHS #5 capsule 08/02/16 Unknown Rx predniSONE [Deltasone] 50 mg PO QDAY #5 tab 08/02/16 Unknown Rx Capsaicin [Capzasin-Hp] 1 applicatio TP TID PRN #1 tube 08/11/16 Unknown Rx Naproxen [Naprosyn TAB] 500 mg PO BID PRN #60 tablet 08/11/16 Unknown Rx diphenhydrAMINE [Benadryl CAP] 25 mg PO Q8HR PRN #15 capsule 08/25/16 Unknown Rx predniSONE [Deltasone] 60 mg PO QDAY 5 Days tab 08/25/16 Unknown Rx Ibuprofen [Motrin] 600 mg PO Q8H PRN #30 tablet 09/17/17 Unknown Rx ED Physical Exam - General Limitations: No Limitations General appearance: alert, in no apparent distress - Head Head exam: Present: atraumatic, normocephalic - Eye Eye exam: Present: normal appearance, PERRL, EOMI Pupils: Present: normal accommodation - ENT ENT exam: Present: normal exam, mucous membranes moist - Neck Neck exam: Present: normal inspection, full ROM. Absent: tenderness, meningismus, lymphadenopathy - Respiratory Respiratory exam: Present: normal lung sounds bilaterally. Absent: respiratory distress, wheezes, rales, rhonchi, stridor, chest wall tenderness, accessory muscle use, decreased breath sounds, prolonged expiratory - Cardiovascular Cardiovascular Exam: Present: regular rate, normal rhythm, normal heart sounds. Absent: bradycardia, tachycardia, irregular rhythm, systolic murmur, diastolic murmur, rubs, gallop - GI/Abdominal GI/Abdominal exam: Present: soft, normal bowel sounds. Absent: distended, tenderness, guarding, rebound, rigid, diminished bowel sounds - Extremities Exam Extremities exam: Present: normal inspection, full ROM, tenderness, normal capillary refill. Absent: pedal edema, joint swelling, calf tenderness - Expanded Upper Extremity Exam Left General: Present: normal inspection Shoulder Exam: Present: normal inspection, full ROM. Absent: tenderness, swelling Upper Arm exam: Present: normal inspection, full ROM. Absent: tenderness, swelling Elbow exam: Present: normal inspection, full ROM. Absent: tenderness, swelling Forearm Wrist exam: Present: normal inspection, full ROM, tenderness, ecchymosis. Absent: swelling, abrasion, laceration, deformity, crepidus, dislocation, erythema, tenderness over anatomical snuff box, pain with axial thumb loading Hand Wrist exam: Present: normal inspection, full ROM. Absent: tenderness, swelling, abrasion Neuro motor exam: Present: wrist extension intact, thumb opposition intact, thumb IP flexion intact, thumb adduction intact, fingers 2-5 abduction intact Neurosensory exam: Present: 2-point discrimination, radial nerve intact, ulnar nerve intact, median nerve intact Vascular: Present: vascular compromise, normal capillary refill, radial pulse, brachial pulse, ulnar pulse - Expanded Lower Extremity Exam Right Hip exam: Present: normal inspection, full ROM. Absent: tenderness Upper Leg exam: Present: normal inspection, full ROM, tenderness, ecchymosis. Absent: swelling, abrasion, laceration, deformity, crepidus, dislocation, erythema Knee exam: Present: normal inspection, full ROM. Absent: tenderness, swelling Lower Leg exam: Present: normal inspection, full ROM. Absent: tenderness, swelling, abrasion, laceration, ecchymosis, deformity, crepidus, dislocation, erythema, palpable cord, Katerin's sign Ankle exam: Present: normal inspection, full ROM. Absent: tenderness, swelling Foot/Toe exam: Present: normal inspection, full ROM. Absent: tenderness, swelling Neuro vascular tendon exam: Present: no vascular compromise. Absent: pulse deficit, abnormal cap refill, motor deficit, sensory deficit, tendon deficit, extremity cold to touch, pallor, abnormal 2-point discrimination, decreased fine /light touch, foot drop, peroneal nerve deficit, significant pain with passive ROM of distal joint Gait: Positive: observed and normal - Back Exam Back exam: Present: normal inspection, full ROM, paraspinal tenderness ( cervical paraspinal). Absent: tenderness, CVA tenderness (R), CVA tenderness (L ), muscle spasm, vertebral tenderness, rash noted - Neurological Exam Neurological exam: Present: alert, oriented X3, CN II-XII intact, normal gait - Expanded Neurological Exam Expanded Patient oriented to: Present: person, place, time Cranial nerves: EOM's Intact: Normal, Gag Reflex: Normal, Facial Sensation: Normal Cerebellar function: Finger to Nose: Normal Upper motor neuron: Pronator Drift: Normal, Sensory Extinction: Normal Sensory exam: Upper Extremity Light Touch: Normal, Upper Extremity Pin Prick: Normal, Upper Extremity Temperature: Normal, UE 2 Point Discrimination: Normal, Lower Extremity Light Touch: Normal, Lower Extremity Pin Prick: Normal, Lower Extremity Temperature: Normal, LE 2 Point Discrimination: Normal Motor strength exam: RUE: 5, LUE: 5, RLE: 5, LLE: 5 Best Eye Response (Kendy): (4) open spontaneously Best Motor Response ([place]): (6) obeys commands Best Verbal Response ([place]): (5) oriented Kendy Total: 15 - Psychiatric Psychiatric exam: Present: normal affect, normal mood - Skin Skin exam: Present: warm, dry, intact, normal color. Absent: rash ED Course Vital Signs 09/17/17 10:31 Temperature 98.2 F Pulse Rate 82 Respiratory 22 Rate Blood Pressure 120/54 O2 Sat by Pulse 100 Oximetry - Reevaluation(s) Reevaluation #1: 09/17/17 11:23 Patient is speaking in full sentences with no signs of distress noted. ED Medical Decision Making - Medical Decision Making This is a 56-year-old female that presents with fall. Patient is stable and was examined by me. Patient is neurologically stable. CT and Xrays obtained and dictated by the radiologist all within normal limits. Patient is notified of the results with no questions noted by the patient. Patient is discharged with Motrin. Patient was referred to Follow-up with a primary care doctor in 3- 5 days or if symptoms worsen and continue return to emergency room as soon as possible. At time of discharge, the patient does not seem toxic or ill in appearance. No acute signs of distress noted. Patient agrees to discharge treatment plan of care. No further questions noted by the patient. Critical care attestation.: If time is entered above; I have spent that time in minutes in the direct care of this critically ill patient, excluding procedure time. ED Disposition Clinical Impression: Fall Qualifiers: Encounter type: initial encounter Qualified Code(s): W19.XXXA - Unspecified fall, initial encounter Head contusion Qualifiers: Encounter type: initial encounter Contusion of head detail: other part of head Qualified Code(s): S00.83XA - Contusion of other part of head, initial encounter Contusion of right arm Qualifiers: Encounter type: initial encounter Qualified Code(s): S40.021A - Contusion of right upper arm, initial encounter Contusion of right thigh Qualifiers: Encounter type: initial encounter Qualified Code(s): S70.11XA - Contusion of right thigh, initial encounter Cervical muscle strain Qualifiers: Encounter type: initial encounter Qualified Code(s): S16.1XXA - Strain of muscle, fascia and tendon at neck level, initial encounter Disposition: DC- TO HOME OR SELFCARE Is pt being admited?: No Does the pt Need Aspirin: No Condition: Stable Instructions: Muscle Strain (ED), Fall Prevention for Older Adults (ED), Contusion in Adults (ED) Additional Instructions: Follow-up with a primary care doctor in 3-5 days or if symptoms worsen and continue return to emergency room as soon as possible. Prescriptions: Ibuprofen [Motrin] 600 mg PO Q8H PRN #30 tablet PRN Reason: Pain Referrals: PRIMARY CARE, [Primary Care Provider] - 3-5 Days MAISHA RAPHAEL MD [Staff Physician] - 3-5 Days [facility] [Outside] - 3-5 Days [facility] [Outside] - 3-5 Days
--- NOTE | 2017-09-17 11:56 | Cat Scan Report ---
FINAL REPORT EXAM: CT HEAD/BRAIN WO CON HISTORY: headache/neck pain s/p fall TECHNIQUE: CT of the head was performed without intravenous contrast. PRIORS: 10/05/2016. FINDINGS: The ventricles are normal in shape and position. The ventricles are nondilated. No intracranial hemorrhage, mass, mass effect, midline shift or evidence of acute ischemic infarct. The basilar cisterns are patent. The paranasal sinuses are clear. The extracranial soft tissues demonstrate no abnormality. The calvarium is intact. The orbits are intact. The mastoid air cells are clear. IMPRESSION: No acute intracranial abnormality.
--- NOTE | 2017-09-17 12:08 | Cat Scan Report ---
FINAL REPORT EXAM: CT CERVICAL SPINE WO CON HISTORY: headache/neck pain s/p fall TECHNIQUE: CT of the cervical spine was performed without intravenous contrast. Reconstructions were included in the coronal and sagittal planes. PRIORS: None. FINDINGS: No cervical spine fracture or subluxation.Straightening of the cervical lordosis is likely related to patient positioning or muscle spasm. The prevertebral soft tissues are normal. Multilevel degenerative changes of the cervical spine are seen. There is moderate bilateral neural foraminal narrowing at C5-6. No spinal stenosis. IMPRESSION: No acute cervical spine abnormality.
--- NOTE | 2017-09-17 13:30 | XRay Report ---
FINAL REPORT EXAM: XR FEMUR 2+V RT HISTORY: right femur pain s/p fall TECHNIQUE: Right femur, AP and lateral PRIORS: None. FINDINGS: There is no acute fracture seen. Right hip joint space is minimally narrowed. There are prominent osteoarthritic changes the right knee including moderate to marked joint narrowing and marginal spurring, notably involving lateral and patellofemoral compartments. No knee joint effusion seen. There is anterior soft tissue swelling. IMPRESSION: Moderate to marked osteoarthritis involving the knee. No acute bony abnormality seen.
--- NOTE | 2017-09-17 13:32 | XRay Report ---
FINAL REPORT EXAM: XR FOREARM LT HISTORY: left forearm pain TECHNIQUE: Left forearm, AP and lateral PRIORS: None. FINDINGS: There is no fracture seen. There is no focal bony lesion identified. IMPRESSION: There is no acute abnormality identified.
== END 2017-09-17 13:50 | disposition home or self-care (01) ==
LOC: ED 10:22
DX: S16.1XXA Strain of muscle, fascia and tendon at neck level, initial encounter (principal); S00.83XA Contusion of other part of head, initial encounter; S40.021A Contusion of right upper arm, initial encounter; S70.11XA Contusion of right thigh, initial encounter; E11.9 Type 2 diabetes mellitus without complications; I10 Essential (primary) hypertension; F20.0 Paranoid schizophrenia; F17.200 Nicotine dependence, unspecified, uncomplicated; Z88.8 Allergy status to other drugs, medicaments and biological substances; W01.0XXA Fall on same level from slipping, tripping and stumbling without subsequent striking against object, initial encounter; Y93.89 Activity, other specified; Y92.128 Other place in nursing home as the place of occurrence of the external cause; Y99.8 Other external cause status
CPT/HCPCS: 70450; 72125

== ENCOUNTER 2017-12-07 10:12 | Emergency (ER) | payer MEDICAID ==
[2017-12-07 10:19] VITALS: BP 167/67
[2017-12-07] MEDS ORDERED: SOLU-Medrol IM ONE (10:49)
--- NOTE | 2017-12-07 11:01 | Emergency Department Report ---
ED Allergic Reaction HPI - General Chief complaint: Allergic Reaction Stated complaint: RASH/ALLERGIC REACTION Time Seen by Provider: 12/07/17 10:47 Source: patient Mode of arrival: Ambulatory Limitations: No Limitations - History of Present Illness Initial Comments: 57-year-old female with rash and itching to her arms, legs, since yesterday. Patient denies new medications. Report use of new detergent. Denies difficulty breathing MD Complaint: allergic reaction -: days(s) (1) Exposure: other (reports new detergent) Symptoms: rash, itching. denies: facial swelling, lip swelling, difficulty swallowing, difficulty breathing, nausea, vomiting Severity: mild Treatment Prior to Arrival: none - Related Data Home Medications Medication Instructions Recorded Confirmed Last Taken Sertraline [Zoloft] 50 mg PO QDAY 09/11/14 08/21/15 06/05/15 08:00 hydrALAZINE [Apresoline TAB] 50 mg PO BID 09/11/14 08/21/15 06/04/15 20:00 risperiDONE [RisperDAL] 2 mg PO QHS 09/11/14 08/21/15 06/04/15 20:00 Previous Rx's Medication Instructions Recorded Last Taken Type EPINEPHrine [Epipen 2-Irvin] 0.3 mg IM ONCE #1 pack 08/02/16 Unknown Rx Famotidine [Pepcid] 20 mg PO BID #10 tablet 08/02/16 Unknown Rx diphenhydrAMINE [Benadryl CAP] 50 mg PO QHS #5 capsule 08/02/16 Unknown Rx predniSONE [Deltasone] 50 mg PO QDAY #5 tab 08/02/16 Unknown Rx Capsaicin [Capzasin-Hp] 1 applicatio TP TID PRN #1 tube 08/11/16 Unknown Rx Naproxen [Naprosyn TAB] 500 mg PO BID PRN #60 tablet 08/11/16 Unknown Rx diphenhydrAMINE [Benadryl CAP] 25 mg PO Q8HR PRN #15 capsule 08/25/16 Unknown Rx predniSONE [Deltasone] 60 mg PO QDAY 5 Days tab 08/25/16 Unknown Rx Ibuprofen [Motrin] 600 mg PO Q8H PRN #30 tablet 09/17/17 Unknown Rx diphenhydrAMINE [Benadryl CAP] 25 mg PO Q8HR PRN #30 capsule 12/07/17 Unknown Rx predniSONE [Prednisone] 50 mg PO DAILY #5 tablet 12/07/17 Unknown Rx Allergies Allergy/AdvReac Type Severity Reaction Status Date / Time lisinopril Allergy Swelling Verified 08/25/16 09:27 ED Review of Systems ROS: Stated complaint: RASH/ALLERGIC REACTION Other details as noted in HPI Comment: All other systems reviewed and negative Constitutional: denies: chills, fever Respiratory: denies: shortness of breath Gastrointestinal: denies: nausea, vomiting Skin: rash ED Past Medical Hx - Past Medical History Previous Medical History?: Yes Hx Hypertension: Yes Hx Diabetes: Yes Hx Renal Disease: Yes Hx Psychiatric Treatment: Yes (paranoid schizophrenia) Additional medical history: Left leg pain - Surgical History Past Surgical History?: Yes Additional Surgical History: FEET SURGERY. - Social History Smoking Status: Current Every Day Smoker Substance Use Type: None - Medications Home Medications: Home Medications Medication Instructions Recorded Confirmed Last Taken Type Sertraline [Zoloft] 50 mg PO QDAY 09/11/14 08/21/15 06/05/15 08:00 History hydrALAZINE [Apresoline TAB] 50 mg PO BID 09/11/14 08/21/15 06/04/15 20:00 History risperiDONE [RisperDAL] 2 mg PO QHS 09/11/14 08/21/15 06/04/15 20:00 History EPINEPHrine [Epipen 2-Irvin] 0.3 mg IM ONCE #1 pack 08/02/16 Unknown Rx Famotidine [Pepcid] 20 mg PO BID #10 tablet 08/02/16 Unknown Rx diphenhydrAMINE [Benadryl CAP] 50 mg PO QHS #5 capsule 08/02/16 Unknown Rx predniSONE [Deltasone] 50 mg PO QDAY #5 tab 08/02/16 Unknown Rx Capsaicin [Capzasin-Hp] 1 applicatio TP TID PRN #1 tube 08/11/16 Unknown Rx Naproxen [Naprosyn TAB] 500 mg PO BID PRN #60 tablet 08/11/16 Unknown Rx diphenhydrAMINE [Benadryl CAP] 25 mg PO Q8HR PRN #15 capsule 08/25/16 Unknown Rx predniSONE [Deltasone] 60 mg PO QDAY 5 Days tab 08/25/16 Unknown Rx Ibuprofen [Motrin] 600 mg PO Q8H PRN #30 tablet 09/17/17 Unknown Rx diphenhydrAMINE [Benadryl CAP] 25 mg PO Q8HR PRN #30 capsule 12/07/17 Unknown Rx predniSONE [Prednisone] 50 mg PO DAILY #5 tablet 12/07/17 Unknown Rx ED Physical Exam - General Limitations: No Limitations General appearance: alert, in no apparent distress - Head Head exam: Present: atraumatic, normocephalic - Eye Eye exam: Present: normal appearance - ENT ENT exam: Present: mucous membranes moist - Neck Neck exam: Present: normal inspection - Respiratory Respiratory exam: Present: normal lung sounds bilaterally. Absent: respiratory distress - Cardiovascular Cardiovascular Exam: Present: regular rate, normal rhythm - GI/Abdominal GI/Abdominal exam: Present: soft. Absent: tenderness - Extremities Exam Extremities exam: Present: normal inspection - Neurological Exam Neurological exam: Present: alert, oriented X3 - Psychiatric Psychiatric exam: Present: normal affect, normal mood - Skin Skin exam: Present: rash (urticarial rash noted to left arm, abdominal wall) ED Course Vital Signs 12/07/17 10:16 Temperature 98.4 F Pulse Rate 78 Respiratory 18 Rate Blood Pressure 167/67 O2 Sat by Pulse 100 Oximetry Critical care attestation.: If time is entered above; I have spent that time in minutes in the direct care of this critically ill patient, excluding procedure time. ED Disposition Clinical Impression: Allergic reaction, Urticaria Disposition: - TO HOME OR SELFCARE Is pt being admited?: No Condition: Stable Instructions: Urticaria (ED) Prescriptions: diphenhydrAMINE [Benadryl CAP] 25 mg PO Q8HR PRN #30 capsule PRN Reason: Itching predniSONE [Prednisone] 50 mg PO DAILY #5 tablet Referrals: PRIMARY CARE, [Primary Care Provider] - 3-5 Days Time of Disposition: 11:02
--- NOTE | 2017-12-07 11:03 | Emergency Department Report ---
HPI - General Chief Complaint: Allergic Reaction Time Seen by Provider: 12/07/17 10:47 ED Past Medical Hx - Past Medical History Previous Medical History?: Yes Hx Hypertension: Yes Hx Diabetes: Yes Hx Renal Disease: Yes Hx Psychiatric Treatment: Yes (paranoid schizophrenia) Additional medical history: Left leg pain - Surgical History Past Surgical History?: Yes Additional Surgical History: FEET SURGERY. - Social History Smoking Status: Current Every Day Smoker Substance Use Type: None - Medications Home Medications: Home Medications Medication Instructions Recorded Confirmed Last Taken Type Sertraline [Zoloft] 50 mg PO QDAY 09/11/14 08/21/15 06/05/15 08:00 History hydrALAZINE [Apresoline TAB] 50 mg PO BID 09/11/14 08/21/15 06/04/15 20:00 History risperiDONE [RisperDAL] 2 mg PO QHS 09/11/14 08/21/15 06/04/15 20:00 History EPINEPHrine [Epipen 2-Irvin] 0.3 mg IM ONCE #1 pack 08/02/16 Unknown Rx Famotidine [Pepcid] 20 mg PO BID #10 tablet 08/02/16 Unknown Rx diphenhydrAMINE [Benadryl CAP] 50 mg PO QHS #5 capsule 08/02/16 Unknown Rx predniSONE [Deltasone] 50 mg PO QDAY #5 tab 08/02/16 Unknown Rx Capsaicin [Capzasin-Hp] 1 applicatio TP TID PRN #1 tube 08/11/16 Unknown Rx Naproxen [Naprosyn TAB] 500 mg PO BID PRN #60 tablet 08/11/16 Unknown Rx diphenhydrAMINE [Benadryl CAP] 25 mg PO Q8HR PRN #15 capsule 08/25/16 Unknown Rx predniSONE [Deltasone] 60 mg PO QDAY 5 Days tab 08/25/16 Unknown Rx Ibuprofen [Motrin] 600 mg PO Q8H PRN #30 tablet 09/17/17 Unknown Rx ED Review of Systems ROS: Stated complaint: RASH/ALLERGIC REACTION Other details as noted in HPI Physical Exam - Physical Exam Vital Signs: Vital Signs 12/07/17 10:16 Temperature 98.4 F Pulse Rate 78 Respiratory 18 Rate Blood Pressure 167/67 O2 Sat by Pulse 100 Oximetry ED Course Vital Signs 12/07/17 10:16 Temperature 98.4 F Pulse Rate 78 Respiratory 18 Rate Blood Pressure 167/67 O2 Sat by Pulse 100 Oximetry Critical care attestation.: If time is entered above; I have spent that time in minutes in the direct care of this critically ill patient, excluding procedure time. ED Disposition Condition: Stable Referrals: PRIMARY CARE, [Primary Care Provider] - 3-5 Days
== END 2017-12-07 11:09 | disposition home or self-care (01) ==
LOC: ED 10:12
DX: T78.40XA Allergy, unspecified, initial encounter (principal); L50.9 Urticaria, unspecified; I10 Essential (primary) hypertension; E11.9 Type 2 diabetes mellitus without complications; F17.200 Nicotine dependence, unspecified, uncomplicated; F20.0 Paranoid schizophrenia; Z88.8 Allergy status to other drugs, medicaments and biological substances; X58.XXXA Exposure to other specified factors, initial encounter
CPT/HCPCS: 96372; 99282; J2930